=== PATIENT | female | born 1945 | race Caucasian/White ===

== ENCOUNTER → 2017-02-22 | Outpatient (CLI) | payer MEDICARE, BC | END | disposition home or self-care (01) | LOC: CDC 14:26 | DX: Z01.810 Encounter for preprocedural cardiovascular examination (principal); M67.432 Ganglion, left wrist; M65.842 Other synovitis and tenosynovitis, left hand; M25.532 Pain in left wrist; I49.1 Atrial premature depolarization | CPT/HCPCS: 93000 ==